=== PATIENT | male | born 1970 | race African-American/Black ===

== ENCOUNTER 2020-06-22 12:24 | Emergency (ER) | payer OTHER, SELFPAY ==
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
[2020-06-22 12:22] VITALS: PULSE 60; RESP 17; TEMP 36.7; O2SAT 99
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
[2020-06-22] MEDS: IBUPROFEN 400 MG TABLET 800 MG PO (12:35)
[2020-06-22] MEDS: HYDROcodone/acetaminophen (*CRX) 5-325 MG TABLET 1 TAB PO (12:35)
[2020-06-22 13:02] VITALS: BP 138/92; PULSE 62; RESP 18; TEMP 36.6; O2SAT 98
[2020-06-22 13:45] VITALS: BP 131/81; PULSE 68; RESP 19; TEMP 36.4; O2SAT 99
== END 2020-06-22 13:45 | disposition home or self-care (01) ==
PROVIDERS: Emergency Provider Emergency Medicine; PCP Emergency Medicine
DX: S60.211A Contusion of right wrist, initial encounter (principal); V49.50XA Passenger injured in collision with unspecified motor vehicles in traffic accident, initial encounter
CPT/HCPCS: 73100; 99283; A9270

== ENCOUNTER 2020-06-23 13:09 | Emergency (ER) | payer OTHER, SELFPAY ==
[2020-06-23 13:11] VITALS: BP 151/84; PULSE 82; RESP 20; TEMP 36.6; O2SAT 100
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
== END 2020-06-23 14:17 | disposition home or self-care (01) ==
PROVIDERS: Emergency Provider General Practice; PCP Emergency Medicine
DX: S16.1XXA Strain of muscle, fascia and tendon at neck level, initial encounter (principal); V89.2XXA Person injured in unspecified motor-vehicle accident, traffic, initial encounter
CPT/HCPCS: 99283

== ENCOUNTER 2022-08-05 10:28 | Emergency (ER) | payer OTHER, SELFPAY ==
--- NOTE | ~2022-08-05 | XR_ITS ---
XR knee RT min 4V DATE: 08/05/2022 10:58 INDICATION: Injury today. Medial knee pain. TECHNIQUE: 5 views COMPARISON: None FINDINGS: There is mild suprapatellar knee joint effusion. There is mild periarticular spurring at the patellofemoral joint. Joint spaces appear well preserved. No fracture, dislocation, periosteal reaction or bone destruction, radiopaque intra-articular loose b ender or chondrocalcinosis is detected. Bipartite patella. IMPRESSION: Mild suprapatellar knee joint effusion Minimal osteoarthritis Reviewed, dictated and finalized at location B.
[2022-08-05 10:41] VITALS: BP 154/107; PULSE 89; RESP 16; TEMP 37.1; O2SAT 99
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
[2022-08-05 11:04] VITALS: BP 154/107; PULSE 89; RESP 16; TEMP 37.1; O2SAT 99
== END 2022-08-05 11:24 | disposition home or self-care (01) ==
PROVIDERS: Emergency Provider Nurse Practitioner Family; PCP Emergency Medicine
DX: M25.461 Effusion, right knee (principal); S80.01XA Contusion of right knee, initial encounter; V67.6XXA Passenger in heavy transport vehicle injured in collision with fixed or stationary object in traffic accident, initial encounter; E78.00 Pure hypercholesterolemia, unspecified; I10 Essential (primary) hypertension; E11.9 Type 2 diabetes mellitus without complications
CPT/HCPCS: 73564; 99213; G0463